=== PATIENT | female | born 1990 | race African-American/Black ===

== ENCOUNTER 2017-11-04 18:22 | Inpatient (IN) ==
--- NOTE | 2017-11-04 18:13 | OB/GYN History & Physical ---
Date of Encounter: 11/04/17 Time of Encounter: 18:05 Assessment and Plan (1) 34 weeks gestation of Current visit: Yes Status: Acute Admit to labor and delivery for induction of labor secondary to preeclampsia with severe features GBS unknown-prophylaxis treatment May have epidural and Nubain upon request Induction plan undecided at this time Anticipate vaginal delivery Plan of care per consult with Dr. Haas (2) Pre-eclampsia Current visit: Yes Status: Acute Start magnesium 4 g bolus, then 2 g per hour Insert Dorman catheter Strict I&O Qualifiers: Trimester: third trimester Qualified Code(s): O14.93 - Unspecified pre- eclampsia, third trimester History of Present Illness Chief complaint: RUQ pain/pih evaluation HPI: Ms. Flores is a 27 year old female at 34 weeks 5 days gestation with an estimated date of of 12/11/17 dated by LMP. She presents from the ER triage was complaining of right upper quadrant pain that started this morning. Per ER triage her blood pressure there was 190/143. She denies headaches, vision changes. She reports good movement and denies contractions, leakage of fluid, vaginal bleeding. She did have a single episode of emesis in route from the ER to labor and delivery. Otherwise no complaints. She has been followed by Dr. Weiss throughout this . records are available electronically and have been reviewed. Labs: B+ GBS unknown HIV- HepB- T. Palladium- GC/CL- Rubella immune Varicella immune Past Med Surg Social Fam HX - Past Medical History Medical history: no medical history Psychiatric history: no psych history - Social History Smoking Status: Never smoker Smokeless Tobacco Status: No Alcohol use: none Drug use: none - Family History Mother Name: pt denies any family medical history Obstetrical History - Pregnancies : 2 Para: 1 Term: 1 ( full term, vaginal delivery, no complications, Weight: 7lb 11oz , male, "crow", Dr.Parks valadez, bottle and breast fed 05/2012) : 0 Ab's: 0 Livin Medications and Allergies Vitamins 1 tab PO DAILY 11/04/17 [History] 3 Allergy/AdvReac Type Severity Reaction Status Date / Time No Known Allergies Allergy Verified 09/18/16 20:26 Review of System OB All systems PM: reviewed and no additional remarkable complaints except as stated - Constitutional Constitutional ROS IM: as per HPI - Gastrointestinal Gastrointestinal: other (RUQ pain) Exam - Constitutional Constitutional: well developed, well nourished, no acute distress, average body habitus - HEENT HEENT: Normocephaly, Mucus Membranes Moist - Neck Neck exam: full ROM - Lungs Respiratory exam: CTAB - Cardiovascular Cardiovascular exam: RRR, +S1, +S2 - Breasts Breast: bilateral: normal - Abdomen Abdomen: Present: bowel sounds normal, gravid, non tender - Extremities Extremities exam: normal capillary refill, normal inspection, pedal edema, radial pulses palpable and symmetrical - Vulva Vulva: bilateral: normal - Vagina Vagina: Present: normal moisture - Uterus Uterus exam: Present: normal size, normal contour Results Result Diagrams: 11/04/17 18:05 All other labs normal. - VTE Reasons for not Prescribing Prophylaxis: Treatment not Indicated - Low risk for VTE
[~2017-11-04 18:22] MED LIST: *HR* Labetalol 20 MG/4 ML SYRINGE IVP ONE; *HR* Nalbuphine 10 MG/ML AMPUL IVP PRN; Famotidine 20 MG/2 ML VIAL IVP PRN; Metoclopramide 10 MG/2 ML VIAL IVP PRN; Naloxone 0.4 MG/ML INJ IVP PRN; Ondansetron 4 MG/2 ML VIAL IVP PRN; Ringers Solution, Lactated 1,000 ML ONE
[2017-11-04] MEDS ORDERED: Betamethasone Acet/SodPhos 6 MG/ML MDV IM SCH (18:30)
[2017-11-04] MEDS ORDERED: Magnesium Sulfate 20 gm/500mL 20 GM/500 ML IV.SOLN IVC SCH (18:30)
[2017-11-04] MEDS ORDERED: Ringers Solution, Lactated 1,000 ML IVC SCH (18:30)
[2017-11-04 18:31] LABS: Bilirubin,Urine Negative (Negative); Blood,Urine Moderate (Negative); Clarity,Urine Cloudy (Clear); Color,Urine Yellow (Yellow); Glucose,Urine (UA) Normal (Normal); Ketones,Urine Negative (Negative); Leukocyte Esterase,Urine Trace (Negative); Nitrite,Urine Negative (Negative); PH,Urine 6.5 pH Units (5.0-8.0); Protein,Urine >=1000 mg/dL (Neg-Trace); Specific Gravity,Urine 1.023 (1.010-1.025); Urobilinogen,Urine Normal (Normal)
[2017-11-04 18:32] LABS: Bacteria,Urine Few per hpf (None-Few); Hyaline Casts,Urine Few per lpf (None-Few); Squamous Epithelial Cell,Urine Many per lpf (None-Few); WBC,Urine 30-50 per hpf (0-3)
[2017-11-04] MEDS ORDERED: *HR* Labetalol 20 MG/4 ML SYRINGE IVP ONE ×4 (18:36→18:58)
[2017-11-04 18:39] LABS: Basophils % 0.1 %; Hematocrit 44.6 % (35.3-44.9); Hemoglobin 14.9 g/dL (11.5-15.4); Immature Granulocytes % 0.4 % (0-4); Immature Platelets 7.8 % (1.1-6.1); Lymphocytes # 1.9 K/mcL (0.6-4.6); Lymphocytes % 16.1 %; Mean Corpuscular HGB Conc 33.4 g/dL (31.6-35.5); Mean Corpuscular Hemoglobin 26.1 pg (28.0-33.3); Mean Corpuscular Volume 78.1 fL (83.0-100.0); Monocytes # 1.1 K/mcL (0.0-1.3); Monocytes % 9.2 %; Neutrophils # 8.8 K/mcL (1.6-8.9); Platelet Count 133 K/mcL (140-400); Red Blood Count 5.71 M/mcL (3.82-4.97); Red Cell Distribution Width 15.7 % (11.5-14.5); Segmented Neutrophils % 74.2 %
[2017-11-04 18:51] LABS: Amphetamine Screen,Urine Negative ng/mL (Cutoff=1000); Barbiturate Screen,Urine Negative ng/mL (Cutoff=200); Benzodiazepines Screen,Urine Negative ng/mL (Cutoff=200); Cannabinoid Screen,Urine Negative ng/mL (Cutoff = 50); Cocaine Screen,Urine Negative ng/mL (Cutoff= 300); Opiate Screen,Urine Negative ng/mL (Cutoff=300); Phencyclidine Screen,Urine Negative ng/mL (Cutoff=25)
[2017-11-04 18:51] LABS: Alanine Aminotransferase 99 Units/L (7-52); Blood Urea Nitrogen 8 mg/dL (6-20); Lactate Dehydrogenase 400 Units/L (140-271)
[2017-11-04] MEDS ORDERED: Penicillin G Potassium 5,000,000 UNIT in 0.9 % Sodium Chloride Mini Bag 100 ML IVPB ONE (18:51)
[2017-11-04 19:10] LABS: Creatinine,Urine 182 mg/dL; Protein/Creatinine Ratio,Urine 9.18 mg/mg (0.00-0.20)
[2017-11-04] MEDS ORDERED: Naloxone 0.4 MG/ML INJ IVP PRN (19:18)
[2017-11-04] MEDS ORDERED: 0.9 % Sodium Chloride 500 ML IVC PRN (19:18)
[2017-11-04 19:19] LABS: INR 0.9; Prothrombin Time 9.6 Seconds (9.4-12.1)
[2017-11-04 19:21] LABS: Activated Partial Thrombo Time 27.9 Seconds (26.0-36.0)
[2017-11-04] MEDS ORDERED: Epidural Premix (fent/bupiv) 110 ML EP ONE (19:21)
[2017-11-04] MEDS ORDERED: Lidocaine 1% 20 ML MDV ONE (19:23)
[2017-11-04] MEDS ORDERED: Lidocaine -MPF 1% 5 ML AMPUL ONE (19:23)
[2017-11-04] MEDS ORDERED: Epidural Premix (fent/bupiv) 110 ML EP SCH (19:30)
--- NOTE | 2017-11-04 19:59 | Anesthesia Evaluation PreOp ---
Date of Encounter: 11/04/17 Time of Encounter: 19:40 - Past History Planned Operation: YARI Cardiac History: Denies any Significant Hx Pulmonary History: Denies Any Significant HX MEDICAL IMAGING TECHNICIAN History: Denies Any Significant HX Anesthesia History: No Prior Anesthetic Complications Alcohol Use: none Drug use: none Medications and Allergies Vitamins 1 tab PO DAILY 11/04/17 [History] 3 Allergy/AdvReac Type Severity Reaction Status Date / Time No Known Allergies Allergy Verified 09/18/16 20:26 - Meds/Allergy Pre-op Review Medications Reviewed: Yes Allergies Reviewed: Yes Beta Blockers on Current Med List: No Anesthesia Results - Labs 11/04/17 18:05 11/04/17 18:00 Anesthesia Exam 160/100 16 80 Height: 67 Weight: 210 NPO (# of Hours): MN Pain Scale: 0 - HEENT Pupil (Motor): Pupils equal Mallampati: II Teeth: Normal Oral Opening: Greater than 3 - MEDICAL IMAGING TECHNICIAN LOC: Oriented MEDICAL IMAGING TECHNICIAN Motor: Normal RUE, Normal LUE, Normal RLE, Normal LLE, Normal Face MEDICAL IMAGING TECHNICIAN Sensory: Normal: RUE, LUE, RLE, LLE, Face - Cardiac Rhythm: Regular Murmur: None JVD: No Carotid Bruit: No - Pulmonary Breath Sounds: left Clear Respiratory Effort: Symmetrical Anesthesia Assess/Plan ASA Score: 2 Modified Irmo Scale for Level of Consciousness: Cooperative, oriented, and tranquil Anesthetic Plan: Regional Autologous Blood: No Monitoring Plan: Standard Monitors
[2017-11-04] MEDS ORDERED: Oxytocin 20 units/ LR 1000 mL 20 UNIT/1,000 ML BAG IVC SCH (20:00)
[2017-11-04] MEDS ORDERED: Penicillin G Potassium 2,500,000 UNIT in 0.9 % Sodium Chloride 100 ML IVPB SCH (20:00)
--- NOTE | 2017-11-04 20:04 | Anesthesia Procedures ---
Date of Encounter: 11/04/17 Time of Encounter: 19:40 Procedures: Anesthesia - Epidural/Spinal Patient ID/Chart reviewed: Yes Patient examined: Yes OB Eval: Gestational age: 34.5 OB Eval: : 2 OB Eval: Hx Para: 1 OB Eval: Dilated at (cm): 2 OB Eval: Contractions: Non-stressed pattern Consent Obtained: Yes Supplemental Oxygen: None/Room Air Site Prep: Aseptic Technique, Sterile prep and drape, Povidone-Iodine 1% Patient position: upright Amount of Local Anesthetic used: 3 Touhy Needle Gauge: 18 Touhy Needle Depth (cm): 7 Catheter Depth at Skin (cm): 10 Test Dose (1.5% Lido + Epi): Volume given (mls): 3 Test Dose Result: Negative Loading Dose Administered: Thru Catheter Infusion Rate (mls/hr): [address]: Tegaderm, Tape Interspace Used: L4-L5 Loss of Resistance (DEMETRIUS): Yes Blood: No CSF: No Paresthesia: No Procedure: tolerated well stable throughout see nursing notes Vitals + FHT's: stable throughout see nurisng notes
[2017-11-04] MEDS ORDERED: Calcium Gluconate 1,000 MG/10 ML VIAL IVPB ONE (20:50)
--- NOTE | 2017-11-04 21:38 | OB Labor Progress Note ---
Date of Encounter: 11/04/17 Time of Encounter: 20:57 Labor Progress Note - Subjective Subjective: Patient comfortable with epidural in place. - Cervix Cervix: 3-4/80/-2 - Heart Tones Heart Tones: Baseline 120 Moderate variability Accelerations present 15 x 15 Deep variable decelerations with each contraction FHR category II - [place]: Contractions every 7 minutes on toco - Interventions Interventions: SVE AROM - small amount of clear fluid IUPC FSE - Plan Plan: Continue induction management Frequent position changes Start pitocin when FHR improves Anticipate GBS unknown - continue prophylaxis Severe pre-eclampsia - continue magnesium Dr. Haas aware of POC and agrees
--- NOTE | 2017-11-04 21:54 | OB Labor Progress Note ---
Date of Encounter: 11/04/17 Time of Encounter: 21:50 Labor Progress Note - Subjective Subjective: Discussed the possibility of emergency with patient and family. Discussed current management and plans. Questions answered. She and her family like to continue with conservative plan at this time. - Cervix Cervix: 4/80/-1 - Heart Tones Heart Tones: CAT 2 ( episodic variable decels ) - Plan Plan: See above
[2017-11-04 22:03] LABS: Albumin 2.3 g/dL (3.5-5.7); Albumin/Globulin Ratio 0.8 (1.1-2.2); Alkaline Phosphatase 269 Units/L (34-104); Aspartate Amino Transferase 185 Units/L (13-39); BUN/Creatinine Ratio 9 (6-26); Bilirubin,Total 0.7 mg/dL (0.3-1.0); Calcium 7.8 mg/dL (8.6-10.3); Carbon Dioxide 21 mEq/L (23-29); Chloride 106 mEq/L (98-107); Globulin 2.9 g/dL (2.4-3.5); Glucose 110 mg/dL (70-105); Osmolality,Calculated 279 (280-300); Potassium 3.7 mEq/L (3.5-5.1); Sodium 135 mEq/L (136-145); Total Protein 5.2 g/dL (6.4-8.9); eGFR For African Americans > 60 (> 60); eGFR For Non-African Americans > 60 (> 60)
[2017-11-04] MEDS ORDERED: 0.9 % Sodium Chloride 1,000 ML ONE (23:38)
--- NOTE | 2017-11-04 23:42 | OB Labor Progress Note ---
Date of Encounter: 11/04/17 Time of Encounter: 23:40 Labor Progress Note - Subjective Subjective: Pt comfortable with epidural. - Cervix Cervix: 6/80/-2 to -1 - Heart Tones Heart Tones: Baseline 115 Minimal to moderate variability Accelerations present 15x15 Early and late decelerations FHR Category II - [place]: Contractions every 4-5 minutes - Interventions Interventions: SVE Position changes Amnioinfusion Dr. Haas to bedside - Plan Plan: Continue induction management Amnioinfusion as ordered Continue PCN Continue Magnesium Position changes Anticipate vaginal delivery Dr. Haas aware of POC and agrees
--- NOTE | 2017-11-05 00:09 | OB Labor Progress Note ---
Date of Encounter: 11/05/17 Time of Encounter: 00:06 Labor Progress Note - Subjective Subjective: Pt comfortable with epidural. - Cervix Cervix: 6-7/90/-1 to 0 - Heart Tones Heart Tones: FHR Category II - [place]: Contractions every 4+ minutes - Interventions Interventions: SVE - Plan Plan: Continue induction management Continue penicillin Continue magnesium Frequent position changes Anticipate Dr. Haas aware of POC and agrees
[2017-11-05] MEDS ORDERED: Terbutaline 1 MG/ML VIAL SQ ONE (00:51)
[2017-11-05] MEDS ORDERED: Lidocaine/EPI 1:200k 2% PF 20 ML VIAL ONE (00:54)
[2017-11-05] MEDS ORDERED: Ringers Solution, Lactated 1,000 ML ONE (00:57)
[2017-11-05] MEDS ORDERED: *HR* FentaNYL (PF) 100 MCG/2 ML VIAL ONE (01:03)
[2017-11-05] MEDS ORDERED: Ketamine *HR* 500 MG/10 ML MDV ONE (01:05)
[2017-11-05] MEDS ORDERED: *HR* Midazolam HCl 2 MG/2 ML VIAL ONE (01:06)
[2017-11-05] MEDS ORDERED: *HR* Labetalol 20 MG/4 ML SYRINGE IVP ONE (01:10)
[2017-11-05] MEDS ORDERED: *HR* Morphine 2 MG/ML SYRINGE IVP PRN (01:19)
[2017-11-05] MEDS ORDERED: Naloxone 0.4 MG/ML INJ IVP PRN ×2 (01:19→03:28)
[2017-11-05] MEDS ORDERED: *HR* HYDROmorphone (PF) 1 MG/ML SYRINGE IVP PRN (01:19)
[2017-11-05] MEDS ORDERED: Ibuprofen 400 MG TABLET PO PRN (01:19)
[2017-11-05] MEDS ORDERED: Ondansetron 4 MG/2 ML VIAL IVP PRN ×2 (01:19→04:23)
[2017-11-05] MEDS ORDERED: *HR* OxyCODONE/APAP 5/325 TABLET PO PRN (01:19)
[2017-11-05] MEDS ORDERED: Ondansetron 4 MG/2 ML VIAL ONE (01:24)
[2017-11-05] MEDS ORDERED: Dexamethasone 4 MG/ML VIAL ONE (01:24)
[2017-11-05] MEDS ORDERED: Ringers Solution, Lactated 2,000 ML ONE (01:32)
[2017-11-05] MEDS ORDERED: *HR* Oxytocin 10 UNIT/ML VIAL IM ONE (01:32)
[2017-11-05] MEDS ORDERED: Ketorolac 30 MG/ML VIAL ONE (01:36)
[2017-11-05] MEDS ORDERED: Morphine Sulfate/PF 5mg/10mL Vial ONE (01:41)
[2017-11-05] MEDS ORDERED: *HR* Phenylephrine 10 MG/ML VIAL ONE (01:49)
--- NOTE | 2017-11-05 02:06 | OB/GYN Procedure Note ---
Section - Date of procedure: 11/05/17 Preop diagnosis: category 3 FHT tracing, other ( labor) Post-op diagnosis: same (IUGR) Procedure: primary low transverse Surgeon: Patel Chopra Blood Loss: 300 Was there an retail assistant present: No Anesthesiologist: Thu Quinteros Anesthesia Type: Epidural section complications: none Disposition: PACU Specimens: Placenta - Infant (s) A Infant Delivery Date: 11/05/17 Infant Delivery Time: :09 Presentation: vertex Position: CHRISTA Gender: Female Viability: Viable Pounds: 3 Ounces: 10 at 1 minute: 8 at 5 minutes: 9 Specimens collected: cord blood, arterial cord gases Placenta: complete extraction Cord: nuchal cord - Narrative Narrative: Patient was taken to the operating room. After satisfactory anesthesia was achieved, patient was placed in supine position and prepped and draped in usual manner. After appropriate timeout, the abdomen was entered through standard Maylard incision. The Ervin retractor was placed. The peritoneum overlying the lower uterine segment was incised in the U-shaped fashion. Uterine cavity was entered sharply and extended laterally. Fluid was clear. With fundal pressure, the head was delivered. Nuchal cord was relieved. The torso was delivered. Umbilical cord doubly clamped and cut was handed to nursery staff for further evaluation. Placenta was removed and sent to pathology for analysis. Uterus was closed with 0 Monocryl. After assurance hemostasis, the retractor was removed. The abdomen was closed standard fashion using 0 Vicryl in the fascia and 3-0 Monocryl in the skin. Sterile dressing was applied. Patient did well was taken to recovery in satisfactory condition. Counts were correct.
[2017-11-05] MEDS ORDERED: Naloxone 0.4 MG/ML INJ ONE (03:30)
--- NOTE | 2017-11-05 04:11 | Anesthesia Evaluation Post Op ---
Date of Encounter: 11/05/17 Time of Encounter: 04:10 - Vital Signs Vital Signs: 99/61 15 98% 59 - Lungs Lungs: Clear Ascult./Percussion - Airway Airway: Non-obstructed - Cardiovascular Regular Rate - Mental Status Mental Status: Alert & Oriented, Answers Appropriately - Pain Pain Scale: 0 - Nausea Vomiting Nausea Vomiting: Not Present - Hydration Hydration: NPO - Discharge PostOp Status: Transfer Patient to floor (states she is hot. oral temperature 97.7. dea hugger off continue PRN on nursing unit.)
[2017-11-05] MEDS ORDERED: Metoclopramide 10 MG/2 ML VIAL IVP PRN (04:23)
[2017-11-05] MEDS ORDERED: Sennosides 8.6 MG TABLET PO PRN (04:23)
[2017-11-05] MEDS ORDERED: Oxytocin 20 units/ LR 1000 mL 20 UNIT/1,000 ML BAG IVC SCH (04:23)
[2017-11-05] MEDS ORDERED: Acetaminophen 325 MG TABLET PO PRN (04:23)
[2017-11-05] MEDS: Magnesium Sulfate 20 gm/500mL 20 GM/500 ML IV.SOLN IVC SCH ×2 (05:56→16:13)
[2017-11-05 08:48] LABS: Basophils % 0.1 %; Hematocrit 35.5 % (35.3-44.9); Immature Granulocytes % 0.5 % (0-4); Lymphocytes # 1.3 K/mcL (0.6-4.6); Lymphocytes % 5.6 %; Mean Corpuscular HGB Conc 33.8 g/dL (31.6-35.5); Mean Corpuscular Hemoglobin 26.8 pg (28.0-33.3); Mean Corpuscular Volume 79.4 fL (83.0-100.0); Mean Platelet Volume 11.7 fL (9.4-12.4); Monocytes # 1.2 K/mcL (0.0-1.3); Monocytes % 5.4 %; Platelet Count 127 K/mcL (140-400); Red Blood Count 4.47 M/mcL (3.82-4.97); Red Cell Distribution Width 15.7 % (11.5-14.5); Segmented Neutrophils % 88.4 %
[2017-11-05 08:49] LABS: Neutrophils # 20.1 K/mcL (1.6-8.9)
[2017-11-05] MEDS ORDERED: NON-FORMULARY MEDICATION 1 EACH EACH (Prenatal Vitamins 1 TAB) PO SCH (09:00)
[2017-11-05 09:08] LABS: Alanine Aminotransferase 77 Units/L (7-52); Aspartate Amino Transferase 102 Units/L (13-39); BUN/Creatinine Ratio 12 (6-26); Blood Urea Nitrogen 11 mg/dL (6-20); Lactate Dehydrogenase 323 Units/L (140-271); Magnesium 6.3 mg/dL (1.6-2.6); Uric Acid 5.9 mg/dL (2.3-7.6); eGFR For African Americans > 60 (> 60); eGFR For Non-African Americans > 60 (> 60)
[2017-11-05] MEDS: Prenatal Vit/FA 1 EACH TABLET PO SCH (09:25)
[2017-11-06 05:02] LABS: Basophils % 0.1 %; Hematocrit 34.1 % (35.3-44.9); Hemoglobin 11.3 g/dL (11.5-15.4); Immature Granulocytes % 0.5 % (0-4); Lymphocytes % 9.7 %; Mean Corpuscular HGB Conc 33.1 g/dL (31.6-35.5); Mean Corpuscular Hemoglobin 26.3 pg (28.0-33.3); Mean Corpuscular Volume 79.5 fL (83.0-100.0); Mean Platelet Volume 11.4 fL (9.4-12.4); Monocytes # 1.1 K/mcL (0.0-1.3); Monocytes % 5.3 %; Neutrophils # 17.7 K/mcL (1.6-8.9); Platelet Count 147 K/mcL (140-400); Red Blood Count 4.29 M/mcL (3.82-4.97); Red Cell Distribution Width 15.9 % (11.5-14.5); Segmented Neutrophils % 84.4 %
[2017-11-06 05:27] LABS: Alanine Aminotransferase 58 Units/L (7-52); Aspartate Amino Transferase 71 Units/L (13-39); BUN/Creatinine Ratio 13 (6-26); Blood Urea Nitrogen 10 mg/dL (6-20); Lactate Dehydrogenase 344 Units/L (140-271); Uric Acid 5.4 mg/dL (2.3-7.6); eGFR For African Americans > 60 (> 60); eGFR For Non-African Americans > 60 (> 60)
[2017-11-06] MEDS: *HR* OxyCODONE/APAP 5/325 TABLET PO PRN ×2 (05:32→22:15)
[2017-11-06] MEDS: Prenatal Vit/FA 1 EACH TABLET PO SCH (09:22)
[2017-11-06] MEDS: Ibuprofen 600 MG TABLET PO PRN ×2 (10:17→18:56)
--- NOTE | 2017-11-06 12:34 | OB/GYN Progress Note ---
Date of Encounter: 11/06/17 Time of Encounter: 12:31 - Assessment and Plan (1) delivery delivered Current Visit: Yes Status: Acute Stable POD #1 Start labetalol 100 twice a day Now off magnesium Continue current management Anticipate discharge tomorrow (2) HELLP syndrome, complicating childbirth Current Visit: Yes Status: Acute BP remains slightly elevated. Discussed with Dr. Weiss will start 100 labetalol twice daily Subjective - Subjective Interval history: Pt states feels well. Pain well managed on po pain medication, +flatus, +void, minimal bleeding Patient reports: appetite normal, voiding normally, pain well controlled, ambulating normally [place]: in NICU Objective - Vital Signs Latest vital signs: Vital Signs Temp Pulse Resp BP Pulse Ox 11/06/17 12:08 80 143/85 11/06/17 07:45 97.7 F 67 18 142/85 11/06/17 05:54 97.5 F L 64 14 160/94 97 11/06/17 01:15 97.6 F 70 14 110/69 100 11/06/17 00:15 97.5 F L 69 14 126/82 98 11/05/17 23:15 97.5 F L 69 14 120/79 95 11/05/17 22:15 97.6 F 73 14 129/77 97 11/05/17 21:15 97.6 F 63 14 142/85 99 11/05/17 20:15 97.5 F L 73 14 148/93 96 11/05/17 19:15 97.4 F L 64 14 128/77 99 11/05/17 18:20 97.4 F L 73 16 117/64 97 11/05/17 17:22 97.5 F L 69 16 133/85 96 11/05/17 16:15 97.5 F L 61 18 131/82 96 11/05/17 15:15 77 18 124/80 11/05/17 14:15 97.5 F L 65 18 148/91 11/05/17 13:15 80 18 143/95 Intake and Output 11/05/17 11/06/17 11/06/17 23:59 07:59 15:59 Intake Total 860 / 860 800 / 800 360 / 360 Output Total 1500 / 1500 2400 / 2400 300 / 300 Balance -640 / -640 -1600 / -1600 60 / 60 Intake: IV Fluids 500 / 500 Magnesium Sulfate Premix 20 gm/ 500 / 500 500mL 20 gm In 500 ml @ 2 GM/HR 50 mls/hr IVC .Q10H [facility] Rx#: [id number] Oral 360 / 360 800 / 800 360 / 360 Output: Urine 150 / 150 500 / 500 300 / 300 Emesis 200 / 200 Catheter 1150 / 1150 1900 / 1900 Other: Meal Breakfast Percent of Meal Consumed 70% 100% Weight 99.881 kg Patient Weight 11/06/17 23:59 Weight 99.881 kg - Exam Lungs: bilateral: normal Chest: Normal S1, Normal S2 Extremities: Present: normal Abdomen: Present: normal appearance, aortic enlargement Incision: Present: dressed (JAD) Uterus: Present: firm (U-2) Comments: +1 DTR - Labs Labs: Laboratory Results - last 24 hr 11/06/17 11/06/17 11/06/17 04:16 04:16 04:16 WBC 20.9 H RBC 4.29 Hgb 11.3 L Hct 34.1 L MCV 79.5 L MCH 26.3 L MCHC 33.1 RDW 15.9 H Plt Count 147 MPV 11.4 Immature Gran % 0.5 Seg Neutrophils % 84.4 Lymphocytes % 9.7 Monocytes % 5.3 Eosinophils % 0.0 Basophils % 0.1 Neutrophils # 17.7 H Lymphocytes # 2.0 Monocytes # 1.1 Eosinophils # 0.0 Basophils # 0.0 BUN 10 Creatinine 0.77 Est GFR ( Amer) > 60 Est GFR (Non-Af Amer) > 60 BUN/Creatinine Ratio 13 Uric Acid 5.4 Magnesium 5.5 H AST 71 H ALT 58 H Lactate Dehydrogenase 344 H
[2017-11-07 04:30] LABS: Basophils % 0.1 %; Eosinophils # 0.1 K/mcL (0.0-0.6); Eosinophils % 0.4 %; Hematocrit 29.1 % (35.3-44.9); Lymphocytes # 3.3 K/mcL (0.6-4.6); Lymphocytes % 20.2 %; Mean Corpuscular Hemoglobin 25.7 pg (28.0-33.3); Mean Platelet Volume 11.9 fL (9.4-12.4); Monocytes # 1.3 K/mcL (0.0-1.3); Monocytes % 7.8 %; Neutrophils # 11.5 K/mcL (1.6-8.9); Nucleated Red Blood Cells 0.2 /100 WBC (0); Platelet Count 156 K/mcL (140-400); Red Blood Count 3.73 M/mcL (3.82-4.97); Red Cell Distribution Width 16.1 % (11.5-14.5); Segmented Neutrophils % 70.5 %
[2017-11-07 04:44] LABS: Hemoglobin 9.6 g/dL (11.5-15.4)
[2017-11-07 04:51] LABS: Alanine Aminotransferase 36 Units/L (7-52); Aspartate Amino Transferase 38 Units/L (13-39); BUN/Creatinine Ratio 15 (6-26); Blood Urea Nitrogen 11 mg/dL (6-20); Lactate Dehydrogenase 253 Units/L (140-271); Uric Acid 5.3 mg/dL (2.3-7.6); eGFR For African Americans > 60 (> 60); eGFR For Non-African Americans > 60 (> 60)
--- NOTE | 2017-11-07 08:37 | OB/GYN Progress Note ---
Date of Encounter: 11/07/17 Time of Encounter: 08:35 - Assessment and Plan (1) delivery delivered Current Visit: Yes Status: Acute Continue postop and care anticipate discharge home tomorrow. (2) HELLP syndrome, complicating childbirth Current Visit: Yes Status: Acute Continue BPs Q 4 hours Continue labetalol 100mg po BID Subjective - Subjective Principal diagnosis: status post c/s Interval history: Patient is postop day 2 with history of HELLP syndrome. Labs have returned to normal limits. Patient denies headache, visual disturbances or epigastric pain. Patient is ambulating without difficulty and tolerating regular diet. Patient reports: appetite normal, voiding normally, pain well controlled, ambulating normally : doing well, in NICU, bottle feeding Objective - Vital Signs Latest vital signs: Vital Signs Temp Pulse Resp BP Pulse Ox 11/07/17 07:55 98.3 F 73 18 149/86 100 11/07/17 04:02 98.1 F 70 16 133/69 100 11/06/17 23:40 98.1 F 75 14 147/84 100 11/06/17 19:50 98.2 F 78 16 134/78 100 11/06/17 15:40 98.1 F 71 18 123/76 11/06/17 12:08 80 143/85 Intake and Output 11/06/17 11/07/17 11/07/17 23:59 07:59 15:59 Intake Total 240 / 240 Output Total 1300 / 1300 500 / 500 Balance -1060 / -1060 -500 / -500 Intake: Oral 240 / 240 Output: Urine 1300 / 1300 500 / 500 Other: Meal Dinner Percent of Meal Consumed 100% Weight 99.79 kg Patient Weight 11/07/17 23:59 Weight 99.79 kg - Exam Lungs: bilateral: normal Chest: Normal S1, Normal S2 Extremities: Present: normal Abdomen: Present: normal appearance, soft Incision: Present: normal, dry, intact, dressed (JAD dressing) Uterus: Present: normal, firm Fundal Height: 2 (U/2) - Labs Labs: Laboratory Results - last 24 hr 11/07/17 11/07/17 03:58 03:58 WBC 16.4 H RBC 3.73 L Hgb 9.6 L D Hct 29.1 L MCV 78.0 L MCH 25.7 L MCHC 33.0 RDW 16.1 H Plt Count 156 MPV 11.9 Immature Gran % 1.0 Seg Neutrophils % 70.5 Lymphocytes % 20.2 Monocytes % 7.8 Eosinophils % 0.4 Basophils % 0.1 Neutrophils # 11.5 H Lymphocytes # 3.3 Monocytes # 1.3 Eosinophils # 0.1 Basophils # 0.0 Nucleated RBCs/100 WBC 0.2 H BUN 11 Creatinine 0.72 Est GFR ( Amer) > 60 Est GFR (Non-Af Amer) > 60 BUN/Creatinine Ratio 15 Uric Acid 5.3 AST 38 ALT 36 Lactate Dehydrogenase 253
[2017-11-07] MEDS: Ibuprofen 600 MG TABLET PO PRN ×2 (09:49→19:54)
[2017-11-07] MEDS: Prenatal Vit/FA 1 EACH TABLET PO SCH (09:49)
[2017-11-07] MEDS: Simethicone 80 MG TAB.CHEW PO PRN ×2 (09:50→19:55)
[2017-11-08] MEDS: Ibuprofen 600 MG TABLET PO PRN (05:17)
[2017-11-08 06:48] LABS: Basophils % 0.2 %; Eosinophils # 0.2 K/mcL (0.0-0.6); Eosinophils % 1.5 %; Hematocrit 29.9 % (35.3-44.9); Hemoglobin 9.9 g/dL (11.5-15.4); Lymphocytes # 2.9 K/mcL (0.6-4.6); Lymphocytes % 23.7 %; Mean Corpuscular HGB Conc 33.1 g/dL (31.6-35.5); Mean Corpuscular Hemoglobin 26.5 pg (28.0-33.3); Mean Corpuscular Volume 80.2 fL (83.0-100.0); Monocytes # 0.5 K/mcL (0.0-1.3); Monocytes % 3.9 %; Neutrophils # 8.5 K/mcL (1.6-8.9); Nucleated Red Blood Cells 0.4 /100 WBC (0); Platelet Count 188 K/mcL (140-400); Red Blood Count 3.73 M/mcL (3.82-4.97); Red Cell Distribution Width 16.3 % (11.5-14.5); Segmented Neutrophils % 69.7 %
[2017-11-08 06:58] LABS: Alanine Aminotransferase 37 Units/L (7-52); Aspartate Amino Transferase 43 Units/L (13-39); BUN/Creatinine Ratio 12 (6-26); Blood Urea Nitrogen 9 mg/dL (6-20); Lactate Dehydrogenase 241 Units/L (140-271); Uric Acid 5.7 mg/dL (2.3-7.6); eGFR For African Americans > 60 (> 60); eGFR For Non-African Americans > 60 (> 60)
[2017-11-08] MEDS: Prenatal Vit/FA 1 EACH TABLET PO SCH (07:24)
--- NOTE | 2017-11-08 09:05 | Discharge Summary ---
Date of Encounter: 11/08/17 Time of Encounter: 09:03 - Discharge Diagnosis (1) delivery delivered Priority: Primary Status: Acute Comments: meeting all PP milestones, tolerates regular diet, +flatus, no headache or RUQ pain. Desires discharge. (2) HELLP syndrome, complicating childbirth Priority: Primary Status: Acute Comments: BP stable on meds (3) anemia Priority: Secondary Status: Acute Comments: Will discharge on iron - Discharge Medications Prescriptions: OxyCODONE/APAP 5/325 [Percocet 5/325 MG] 1 each PO Q4HR PRN 5 Days #20 tablet PRN Reason: Moderate pain 4-6 Ibuprofen [Motrin] 600 mg PO Q6HR PRN #60 tablet PRN Reason: Cramping Docusate [Colace] 100 mg PO BID #60 capsule Ferrous Sulfate 325 mg PO DAILY #60 tablet Labetalol [Trandate] 100 mg PO BID #60 tablet Home Medications: Vitamins 1 tab PO DAILY 11/04/17 [History] Acetaminophen [Tylenol] 325 mg PO Q6HR PRN tablet 11/08/17 [Rx] Docusate [Colace] 100 mg PO BID #60 capsule 11/08/17 [Rx] Ferrous Sulfate 325 mg PO DAILY #60 tablet 11/08/17 [Rx] Ibuprofen [Motrin] 600 mg PO Q6HR PRN #60 tablet 11/08/17 [Rx] Labetalol [Trandate] 100 mg PO BID #60 tablet 11/08/17 [Rx] OxyCODONE/APAP 5/325 [Percocet 5/325 MG] 1 each PO Q4HR PRN 5 Days #20 tablet [Rx] Vit/FA 1 each PO DAILY tablet 11/08/17 [Rx] Simethicone [Gas-X] 80 mg PO TID PRN tab.chew 11/08/17 [Rx] Allergies/Adverse Reactions: 3 Allergy/AdvReac Type Severity Reaction Status Date / Time No Known Allergies Allergy Verified 11/04/17 20:21 Data Procedures and tests throughout hospitalization: Laboratory Tests 11/04/17 11/04/17 11/04/17 17:58 18:00 18:05 WBC RBC Hgb Hct MCV MCH MCHC RDW Plt Count MPV Immature Gran % Seg Neutrophils % Lymphocytes % Monocytes % Eosinophils % Basophils % Neutrophils # Lymphocytes # Monocytes # Eosinophils # Basophils # Nucleated RBCs/100 WBC Immature Plt Fraction PT INR APTT Sodium 135 L Potassium 3.7 Chloride 106 Carbon Dioxide 21 L BUN 8 Creatinine 0.89 Est GFR ( Amer) > 60 Est GFR (Non-Af Amer) > 60 BUN/Creatinine Ratio 9 Glucose 110 H Calculated Osmolality 279 L Uric Acid 6.0 Calcium 7.8 L Magnesium Total Bilirubin 0.7 AST 185 H ALT 99 H Alkaline Phosphatase 269 H Lactate Dehydrogenase 400 H Serum Total Protein 5.2 L Albumin 2.3 L Globulin 2.9 Albumin/Globulin Ratio 0.8 L Urine Color Yellow Urine Clarity Cloudy A Urine pH 6.5 Ur Specific [place] 1.023 Urine Protein >=1000 H Urine Glucose (UA) Normal Urine Ketones Negative Urine Blood Moderate H Urine Nitrite Negative Urine Bilirubin Negative Urine Urobilinogen Normal Ur Leukocyte Esterase Trace H Urine Microscopic RBC 5-15 H Urine Microscopic WBC 30-50 H Ur Squamous Epith Cells Many H Urine Bacteria Few Hyaline Casts Few Urine Creatinine 182 Protein/Creatinin Ratio 9.18 H Urine Total Protein 1671 H Urine Opiates Screen Negative Ur Barbiturates Screen Negative Ur Phencyclidine Scrn Negative Ur Amphetamines Screen Negative U Benzodiazepines Scrn Negative Urine Cocaine Screen Negative U Marijuana (THC) Screen Negative Ur Drug Screen Interp See Below Blood Type Antibody Screen Crossmatch 11/04/17 11/04/17 11/04/17 18:05 18:59 23:00 WBC 11.8 H RBC 5.71 H Hgb 14.9 Hct 44.6 MCV 78.1 L MCH 26.1 L MCHC 33.4 RDW 15.7 H Plt Count 133 L MPV 11.0 Immature Gran % 0.4 Seg Neutrophils % 74.2 Lymphocytes % 16.1 Monocytes % 9.2 Eosinophils % 0.0 Basophils % 0.1 Neutrophils # 8.8 Lymphocytes # 1.9 Monocytes # 1.1 Eosinophils # 0.0 Basophils # 0.0 Nucleated RBCs/100 WBC Immature Plt Fraction 7.8 H PT 9.6 INR 0.9 APTT 27.9 Sodium Potassium Chloride Carbon Dioxide BUN Creatinine Est GFR ( Amer) Est GFR (Non-Af Amer) BUN/Creatinine Ratio Glucose Calculated Osmolality Uric Acid Calcium Magnesium Total Bilirubin AST ALT Alkaline Phosphatase Lactate Dehydrogenase Serum Total Protein Albumin Globulin Albumin/Globulin Ratio Urine Color Urine Clarity Urine pH Ur Specific [place] Urine Protein Urine Glucose (UA) Urine Ketones Urine Blood Urine Nitrite Urine Bilirubin Urine Urobilinogen Ur Leukocyte Esterase Urine Microscopic RBC Urine Microscopic WBC Ur Squamous Epith Cells Urine Bacteria Hyaline Casts Urine Creatinine Protein/Creatinin Ratio Urine Total Protein Urine Opiates Screen Ur Barbiturates Screen Ur Phencyclidine Scrn Ur Amphetamines Screen U Benzodiazepines Scrn Urine Cocaine Screen U Marijuana (THC) Screen Ur Drug Screen Interp Blood Type B POSITIVE Antibody Screen NEGATIVE Crossmatch See Detail 11/05/17 11/05/17 11/06/17 08:36 08:36 04:16 WBC 22.7 H D 20.9 H RBC 4.47 4.29 Hgb 12.0 D 11.3 L Hct 35.5 34.1 L MCV 79.4 L 79.5 L MCH 26.8 L 26.3 L MCHC 33.8 33.1 RDW 15.7 H 15.9 H Plt Count 127 L 147 MPV 11.7 11.4 Immature Gran % 0.5 0.5 Seg Neutrophils % 88.4 84.4 Lymphocytes % 5.6 9.7 Monocytes % 5.4 5.3 Eosinophils % 0.0 0.0 Basophils % 0.1 0.1 Neutrophils # 20.1 H 17.7 H Lymphocytes # 1.3 2.0 Monocytes # 1.2 1.1 Eosinophils # 0.0 0.0 Basophils # 0.0 0.0 Nucleated RBCs/100 WBC Immature Plt Fraction PT INR APTT Sodium Potassium Chloride Carbon Dioxide BUN 11 Creatinine 0.92 Est GFR ( Amer) > 60 Est GFR (Non-Af Amer) > 60 BUN/Creatinine Ratio 12 Glucose Calculated Osmolality Uric Acid 5.9 Calcium Magnesium 6.3 H Total Bilirubin AST 102 H ALT 77 H Alkaline Phosphatase Lactate Dehydrogenase 323 H Serum Total Protein Albumin Globulin Albumin/Globulin Ratio Urine Color Urine Clarity Urine pH Ur Specific [place] Urine Protein Urine Glucose (UA) Urine Ketones Urine Blood Urine Nitrite Urine Bilirubin Urine Urobilinogen Ur Leukocyte Esterase Urine Microscopic RBC Urine Microscopic WBC Ur Squamous Epith Cells Urine Bacteria Hyaline Casts Urine Creatinine Protein/Creatinin Ratio Urine Total Protein Urine Opiates Screen Ur Barbiturates Screen Ur Phencyclidine Scrn Ur Amphetamines Screen U Benzodiazepines Scrn Urine Cocaine Screen U Marijuana (THC) Screen Ur Drug Screen Interp Blood Type Antibody Screen Crossmatch 11/06/17 11/06/17 11/07/17 04:16 04:16 03:58 WBC 16.4 H RBC 3.73 L Hgb 9.6 L D Hct 29.1 L MCV 78.0 L MCH 25.7 L MCHC 33.0 RDW 16.1 H Plt Count 156 MPV 11.9 Immature Gran % 1.0 Seg Neutrophils % 70.5 Lymphocytes % 20.2 Monocytes % 7.8 Eosinophils % 0.4 Basophils % 0.1 Neutrophils # 11.5 H Lymphocytes # 3.3 Monocytes # 1.3 Eosinophils # 0.1 Basophils # 0.0 Nucleated RBCs/100 WBC 0.2 H Immature Plt Fraction PT INR APTT Sodium Potassium Chloride Carbon Dioxide BUN 10 Creatinine 0.77 Est GFR ( Amer) > 60 Est GFR (Non-Af Amer) > 60 BUN/Creatinine Ratio 13 Glucose Calculated Osmolality Uric Acid 5.4 Calcium Magnesium 5.5 H Total Bilirubin AST 71 H ALT 58 H Alkaline Phosphatase Lactate Dehydrogenase 344 H Serum Total Protein Albumin Globulin Albumin/Globulin Ratio Urine Color Urine Clarity Urine pH Ur Specific [place] Urine Protein Urine Glucose (UA) Urine Ketones Urine Blood Urine Nitrite Urine Bilirubin Urine Urobilinogen Ur Leukocyte Esterase Urine Microscopic RBC Urine Microscopic WBC Ur Squamous Epith Cells Urine Bacteria Hyaline Casts Urine Creatinine Protein/Creatinin Ratio Urine Total Protein Urine Opiates Screen Ur Barbiturates Screen Ur Phencyclidine Scrn Ur Amphetamines Screen U Benzodiazepines Scrn Urine Cocaine Screen U Marijuana (THC) Screen Ur Drug Screen Interp Blood Type Antibody Screen Crossmatch 11/07/17 11/08/17 11/08/17 03:58 06:26 06:26 WBC 12.3 H RBC 3.73 L Hgb 9.9 L Hct 29.9 L MCV 80.2 L MCH 26.5 L MCHC 33.1 RDW 16.3 H Plt Count 188 MPV 11.0 Immature Gran % 1.0 Seg Neutrophils % 69.7 Lymphocytes % 23.7 Monocytes % 3.9 Eosinophils % 1.5 Basophils % 0.2 Neutrophils # 8.5 Lymphocytes # 2.9 Monocytes # 0.5 Eosinophils # 0.2 Basophils # 0.0 Nucleated RBCs/100 WBC 0.4 H Immature Plt Fraction PT INR APTT Sodium Potassium Chloride Carbon Dioxide BUN 11 9 Creatinine 0.72 0.77 Est GFR ( Amer) > 60 > 60 Est GFR (Non-Af Amer) > 60 > 60 BUN/Creatinine Ratio 15 12 Glucose Calculated Osmolality Uric Acid 5.3 5.7 Calcium Magnesium Total Bilirubin AST 38 43 H ALT 36 37 Alkaline Phosphatase Lactate Dehydrogenase 253 241 Serum Total Protein Albumin Globulin Albumin/Globulin Ratio Urine Color Urine Clarity Urine pH Ur Specific [place] Urine Protein Urine Glucose (UA) Urine Ketones Urine Blood Urine Nitrite Urine Bilirubin Urine Urobilinogen Ur Leukocyte Esterase Urine Microscopic RBC Urine Microscopic WBC Ur Squamous Epith Cells Urine Bacteria Hyaline Casts Urine Creatinine Protein/Creatinin Ratio Urine Total Protein Urine Opiates Screen Ur Barbiturates Screen Ur Phencyclidine Scrn Ur Amphetamines Screen U Benzodiazepines Scrn Urine Cocaine Screen U Marijuana (THC) Screen Ur Drug Screen Interp Blood Type Antibody Screen Crossmatch Labs on day of discharge: Labs from last 24 hours 11/08/17 11/08/17 11/04/17 06:26 06:26 23:00 WBC 12.3 H RBC 3.73 L Hgb 9.9 L Hct 29.9 L MCV 80.2 L MCH 26.5 L MCHC 33.1 RDW 16.3 H Plt Count 188 MPV 11.0 Immature Gran % 1.0 Seg Neutrophils % 69.7 Lymphocytes % 23.7 Monocytes % 3.9 Eosinophils % 1.5 Basophils % 0.2 Neutrophils # 8.5 Lymphocytes # 2.9 Monocytes # 0.5 Eosinophils # 0.2 Basophils # 0.0 Nucleated RBCs/100 WBC 0.4 H BUN 9 Creatinine 0.77 Est GFR ( Amer) > 60 Est GFR (Non-Af Amer) > 60 BUN/Creatinine Ratio 12 Uric Acid 5.7 AST 43 H ALT 37 Lactate Dehydrogenase 241 Crossmatch See Detail Date of admission: 11/04/17 18:22 Primary care physician: PCP NONE Discharging clinician: Ursula Almanzar Anticipated date of discharge: 11/08/17 - Patient Status Disposition: Home, Self-Care Condition: Good Functional capacity at discharge: independent ambulation Overall status at discharge: patient is back to baseline - Discharge Instructions Instructions: Preeclampsia and Eclampsia (DC), Anemia (GEN) Follow Up With: NONE,PCP [Primary Care Provider] - Patel Haas MD [Partnered Physician] - - Diet and Activity Diet: regular diet Hospital Course Reason for admission: IUP - , section Delivery: section Episiotomy: none Laceration: none Other procedures: none complications: none Discharge diagnosis: other (HELLP syndrome ), delivery [place] baby: female Hospital course: Section - Date of procedure: 11/05/17 Preop diagnosis: category 3 FHT tracing, other ( labor) Post-op diagnosis: same (IUGR) Procedure: primary low transverse Surgeon: Patel Chopra Blood Loss: 300 Was there an assistant manager airside operations present: No Anesthesiologist: Thu Quinteros Anesthesia Type: Epidural section complications: none Disposition: PACU Specimens: Placenta - (s) A Delivery Date: 11/05/17 Infant Delivery Time: 01:09 Presentation: vertex Position: CHRISTA Gender: Female Viability: Viable Pounds: 3 Ounces: 10 at 1 minute: 8 at 5 minutes: 9 Specimens collected: cord blood, arterial cord gases Placenta: complete extraction Cord: nuchal cord Stable in PP and appropriate for discharge Time Attestation: Total time spent providing and/or coordinating discharge services: Time Spent: Less than 30 minutes - VTE Reasons for not Prescribing Prophylaxis: Treatment not Indicated - Low risk for VTE Documentation of Mechanical Device: Intermittent pneumatic compression device Exam - Constitutional Vitals: Temp Pulse Resp BP Pulse Ox 98.2 F 76 14 156/106 98 11/08/17 07:52 11/08/17 07:52 11/08/17 07:52 11/08/17 07:52 11/08/17 07:52 General appearance IM: A&O X 3, pleasant, no acute distress - Respiratory Respiratory exam: Present: CTAB - Cardiovascular Cardiovascular exam IM: Present: RRR - GI/Abdominal GI/Abdominal exam IM: soft Incision: dressed (JAD) - Uterine Tone: Firm Uterus Position: 1 Finger Below Umbilicus - Extremities Exam Extremities exam IM: Present: normal capillary refill, normal inspection - Neurological Exam Neurological exam: normal gait, oriented X3, reflexes normal - Psychiatric Additional comments: Reports good mood
[2017-11-08 10:57] VITALS: BP 145/91
== END 2017-11-08 12:03 | disposition home or self-care (01) | DRG 765 ==
LOC: 1NENULAB → 1NENUOBS 11-05 04:19
PROVIDERS: ADMIT Advanced Practice Midwife; ATTEND Advanced Practice Midwife